=== PATIENT | male | born 1940 | race Caucasian/White ===

== ENCOUNTER 2016-03-24 23:17 | Observation (INO) | payer MEDICARE ==
[2016-03-25 02:37] LABS: Hematocrit 41 % (42-52); Mean Corpuscular HGB Conc 34 g/dl (31-36); Mean Corpuscular Hemoglobin 30 pg (27-31); Mean Corpuscular Volume 87 fL (80-94); Mean Platelet Volume 8 um3 (7.4-10.4); Red Blood Count 4.68 10^6/ul (4.0-5.4); Red Cell Distribution Width 16 % (10.5-15); White Blood Count 13.3 10^3/ul (3.5-10.8)
[2016-03-25 02:47] LABS: Albumin 4.1 g/dL (3.2-5.2); BUN/Creatinine Ratio 11.3 (8-20); Calcium 9.7 mg/dL (8.6-10.3); EGFR African American 67.4 (>60); EGFR Non-African American 52.4 (>60); Potassium 4.9 mmol/L (3.5-5.0); Total Bilirubin 0.9 mg/dL (0.2-1.0); Total Protein 7.1 g/dL (6.4-8.9)
[2016-03-25] MEDS ORDERED: Ondansetron INJ* 2 MG/ML VIAL IV ONE (03:36)
[2016-03-25] MEDS ORDERED: Morphine INJ* 4 MG/ML 1 ML CARPUJECT IV ONE (03:36)
[2016-03-25] MEDS ORDERED: NS 0.9% 1000 ML* 1,000 ML IV ONE ×2 (03:43→05:32)
[2016-03-25] MEDS ORDERED: Iodixanol* (CONTRAST) 320 MG/ML 100 ML SDV IV ONE (04:18)
[2016-03-25] MEDS ORDERED: cefTRIAXone(*) 1 GM in NS 0.9% 50 ML* 50 ML IVPB ONE (05:28)
[2016-03-25] MEDS ORDERED: Ketorolac INJ* 30 MG/ML 1 ML VIAL IV PUSH ONE (05:32)
[2016-03-25 05:43] LABS: Urine Bacteria Absent (Absent); Urine Bilirubin Negative (Negative); Urine Glucose 3+(>=500 mg/dL) (Negative); Urine Nitrite Negative (Negative)
--- NOTE | 2016-03-25 06:42 | ED ---
Rose Diane SooYoung, scribed for Manolo Greenberg MD on 03/25/16 at 0336 . Abdominal Pain/Male - HPI Summary HPI Summary: A 75 y/o M presents to ED with c/o diffuse L-sided abd pain onset this AM. No radiating pain, no testicular pain. No melena, CP, SOB. Pt "forced himself to throw-up." Aggravating: drinking the contrast in ED. Alleviating: lying down. Pt rates the pain as 6 out of 10 currently. He'd like to get a blood stick to check his DM. He is visiting his daughter for his grandson's birthday from [place]. Pert PMHx: DM Type II; diverticulitis. No abd surgeries. NKA. - History of Current Complaint Chief Complaint: EDAbdPain Stated Complaint: LEFT GROIN PAIN, JUST NOT FEELING RIGHT Time Seen by Provider: 03/25/16 02:26 Hx Obtained From: Patient Onset/Duration: Sudden Onset, Lasting Hours, Still Present Timing: Constant Severity Initially: Moderate Severity Currently: Moderate Pain Intensity: 0 Pain Scale Used: 0-10 Numeric Location: Diffuse - L abd Radiates: No - Allergies/Home Medications Allergies/Adverse Reactions: Allergies Allergy/AdvReac Type Severity Reaction Status Date / Time No Known Allergies Allergy Verified 03/25/16 02:53 PMH/Surg Hx/FS Hx/Imm Hx Previously Healthy: No Infectious Disease History: No Infectious Disease History: Denies: Traveled Outside the [place] in Last 30 Days - Social History Occupation: Unemployed Lives: Alone Alcohol Use: None Substance Use Type: Reports: None Smoking Status (MU): Never Smoked Tobacco Review of Systems Negative: Fever, Chills Negative: Erythema Negative: Sore Throat Negative: Chest Pain Negative: Shortness Of Breath, Cough Positive: Abdominal Pain - L-sided, Vomiting - forced himself. Negative: Nausea Negative: dysuria, hematuria Negative: Myalgia, Edema Negative: Rash Neurological: Other - neg: dizziness All Other Systems Reviewed And Are Negative: Yes Physical Exam - Summary Physical Exam Summary: Constitutional: Well-developed, Well-nourished, Alert. (-) Distressed Skin: Warm, Dry HENT: Normocephalic; Atraumatic Eyes: Conjunctiva normal Neck: Musculoskeletal ROM normal neck. (-) JVD, (-) Stridor, (-) Tracheal deviation Cardio: Rhythm regular, rate normal, Heart sounds normal; Intact distal pulses; The pedal pulses are 2+ and symmetric. Radial pulses are 2+ and symmetric. (-) Murmur Pulmonary/Chest wall: Effort normal. (-) Respiratory distress, (-) Wheezes, (-) Rales Abd: Soft, (-) Distension, (-) Guarding, (-) Rebound, LLQ TENDERNESS; NO PALPABLE HERNIAS Musculoskeletal: (-) Edema Lymph: (-) Cervical adenopathy Neuro: Alert, Oriented x3 Triage Information Reviewed: Yes Vital Signs On Initial Exam: Initial Vitals Temp Pulse Resp BP Pulse Ox 97.1 F 82 17 120/83 94 03/24/16 23:58 03/24/16 23:58 03/24/16 23:58 03/24/16 23:58 03/24/16 23:58 Vital Signs Reviewed: Yes Diagnostics - Vital Signs Vital Signs Temp Pulse Resp BP Pulse Ox 03/24/16 23:58 97.1 F 82 17 120/83 94 - Laboratory Lab Results: Lab Results 03/25/16 03/25/16 03/25/16 Range/Units 02:15 02:15 02:15 WBC 13.3 H (3.5-10.8) 10^3/ul RBC 4.68 (4.0-5.4) 10^6/ul Hgb 14.0 (14.0-18.0) g/dl Hct 41 L (42-52) % MCV 87 (80-94) fL MCH 30 (27-31) pg MCHC 34 (31-36) g/dl RDW 16 H (10.5-15) % Plt Count 163 (150-450) 10^3/ul MPV 8 (7.4-10.4) um3 Neut % (Auto) 88.5 H (38-83) % Lymph % (Auto) 6.7 L (25-47) % Branch % (Auto) 4.0 (1-9) % Eos % (Auto) 0.3 (0-6) % Baso % (Auto) 0.5 (0-2) % Absolute Neuts (auto) 11.8 H (1.5-7.7) 10^3/ul Absolute Lymphs (auto) 0.9 L (1.0-4.8) 10^3/ul Absolute Monos (auto) 0.5 (0-0.8) 10^3/ul Absolute Eos (auto) 0 (0-0.6) 10^3/ul Absolute Basos (auto) 0.1 (0-0.2) 10^3/ul Absolute Nucleated RBC 0 10^3/ul Nucleated RBC % 0 Sodium 138 (133-145) mmol/L Potassium 4.9 (3.5-5.0) mmol/L Chloride 102 (101-111) mmol/L Carbon Dioxide 28 (22-32) mmol/L Anion Gap 8 (2-11) mmol/L BUN 15 (6-24) mg/dL Creatinine 1.33 H (0.67-1.17) mg/dL Est GFR ( Amer) 67.4 (>60) Est GFR (Non-Af Amer) 52.4 (>60) BUN/Creatinine Ratio 11.3 (8-20) Glucose 208 H (70-100) mg/dL Lactic Acid 2.1 H* (0.5-2.0) mmol/L Calcium 9.7 (8.6-10.3) mg/dL Total Bilirubin 0.90 (0.2-1.0) mg/dL AST 15 (13-39) U/L ALT 15 (7-52) U/L Alkaline Phosphatase 50 (34-104) U/L Total Protein 7.1 (6.4-8.9) g/dL Albumin 4.1 (3.2-5.2) g/dL Globulin 3.0 (2-4) g/dL Albumin/Globulin Ratio 1.4 (1-3) Lipase 31 (11.0-82.0) U/L Result Diagrams: 03/25/16 02:15 03/25/16 02:15 Lab Statement: Any lab studies that have been ordered have been reviewed, and results considered in the medical decision making process. - CT A/P WITH CT CT Interpretation: Positive (See Comments) - IMPRESSION: MILD TO MODERATE L HYDRONEPHROSIS AND PERINEPHRIC INFLAMMATION SECONDARY TO 5MM MID TO DISTAL L URETAL STONE. CT Interpretation Completed By: Radiologist Re-Evaluation - Re-Evaluation First Eval Re-Evaluation Time: 05:00 Abdominal Pain Fem Course/Dx - Course Assessment/Plan: D/W DR. CAVANAUGH, URETERAL OBSTRUCTION 2ND TO 5 MM STONE, DIABETIC , CREATININE 1.3, WBC 13.3. ADMIT FOR URETEROSCOPY, IV ABX, NPO AFTER MIDNIGHT - Diagnoses Provider Diagnoses: Ureteral stone with hydronephrosis Discharge - Discharge Plan Condition: Good Disposition: ADMITTED TO [facility] The documentation as recorded by the Rose castrejon SooYoung accurately reflects the service I personally performed and the decisions made by , Manolo Greenberg MD.
--- NOTE | 2016-03-25 09:16 | RAD ---
Indication: Left lower quadrant pain. CT of the abdomen and pelvis was performed after oral and IV contrast administration. Coronal and sagittal reconstructed images were obtained. Administered 140.8 ml of VISAPAQUE 320 mgi/ml was given according to hospital protocol. The lung bases demonstrate no pleural fluid, nodules or masses. Heart is of normal size without evidence of pericardial effusion. The liver is normal in size. No focal lesions or intrahepatic duct dilatation is noted. The spleen is normal in size. No adrenal lesions are noted. The kidneys demonstrate delay of excretion of the left kidney. There is moderate degree of left hydronephrosis and hydroureter with a calculi in the distal left ureter approximately 3 cm proximal to the left ureterovesicular junction. This measures approximately 6 mm. Additional ureteral calculus is noted more distally just above the ureterovesicular junction measuring approximately 3 mm. The right kidney demonstrates multiple parapelvic cysts. There is a large cyst in the right kidney measuring up to 6.4 cm. Additional cyst lower pole left kidney measures up to 3 cm. Atherosclerotic aorta is noted. Diverticulosis of the sigmoid colon is noted without evidence of diverticulitis. No dilated loops of bowel are noted. Evaluation of the GI tract demonstrates a lipoma in the medial wall of the duodenum. The remainder of the pelvis demonstrates diverticulosis of the sigmoid colon without definite evidence of diverticulitis. Fecaliths are noted. The urinary bladder is unremarkable. No hernias are identified. IMPRESSION: 1. Delay of excretion of the left kidney. 5 mm calculus is noted in the distal left ureter approximately 3 cm proximal to the left ureterovesicular junction. 3 mm calculus is noted just above the left ureterovesicular junction. Right ureter is otherwise unremarkable. 2. Multiple parapelvic cysts are noted. 3. 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 4. Bilateral renal cysts are noted.
[2016-03-25] MEDS ORDERED: Ondansetron INJ* 2 MG/ML VIAL IV PRN (10:20)
[2016-03-25] MEDS ORDERED: Acetaminophen TAB* 325 MG PO PRN (10:20)
[2016-03-25] MEDS ORDERED: Morphine INJ* 4 MG/ML 1 ML CARPUJECT IV PRN (10:20)
[2016-03-25] MEDS ORDERED: Dextrose 50% Syringe 50 ML* 25 GM/50 ML SYRINGE IV PUSH PRN (10:22)
[2016-03-25] MEDS ORDERED: Gentamicin ADULT (*) 180 MG in NS 0.9% 100 ML* 100 ML IVPB ONE (11:00)
[2016-03-25] MEDS ORDERED: Midazolam* 1 MG/ML 5 ML VIAL (5 MG) ONE (12:05)
[2016-03-25] MEDS ORDERED: fentaNYL* 50 MCG/ML 2 ML VIAL (100 MCG VIAL) ONE (12:18)
[2016-03-25] MEDS ORDERED: Atracurium* 10 MG/ML 10 ML VIAL ONE (12:33)
[2016-03-25] MEDS ORDERED: Propofol* 10 MG/ML 20 ML BTL IV PUSH ONE (13:17)
--- NOTE | 2016-03-25 13:23 | HP ---
ADMISSION HISTORY AND PHYSICAL: DATE OF ADMISSION: 03/25/16 PRIMARY CARE PROVIDER: Dr. Johnson in [place], [place]. HEALTHCARE PROXY: Micaela Lowry. CODE STATUS: Full. SOURCE OF INFORMATION: History obtained from interview with emergency room physician and discussion with the patient. RELIABILITY: Good. CHIEF COMPLAINT: Flank pain. HISTORY OF PRESENT ILLNESS: This is a 75-year-old man with past medical history of diabetes and hyperlipidemia, who had been in his usual state of health, visiting his grandchildren from [place] for a birthday green party. On the day prior to admission, he developed left abdominal and flank pain that became progressively worse. He took Tums for relief without effect, but did not take any NSAIDs, Tylenol or aspirin. Because of the worsening pain, he presented to the emergency room, where a CAT scan was notable for obstructing nephrolithiasis. The patient denies any decrease in fluid or food intake prior to the pain onset. His exercise tolerance is generally about a quarter mile of walking, limited by right leg pain. Prior to initiation of pain, he was exercising everyday for an hour to hour and half approximately 1 year prior on treadmill and also using free weights. Denies any fever, chills, or night sweats prior to presentation. No nausea or vomiting. He notes a weaker stream over the last several years and gets up at night to urinate approximately 2 times overnight. He denies ever having chest pain or shortness of breath. On his previous surgeries, he has never had difficulty with anesthesia. He denies orthopnea, PND, or increasing lower extremity edema. PAST MEDICAL HISTORY: 1. Type 2 diabetes on metformin alone. 2. History of hyperlipidemia. 3. History of diverticulitis. 4. No history of CAD, TIA, CVA, DVTs, PE, or HILARIO. PAST SURGICAL HISTORY: 1. Right wrist surgery in 2011. 2. Carpal tunnel release 15 years prior. 3. Right knee surgery. 4. Tonsillectomy in 1967. MEDICATIONS: 1. Metformin 1000 mg twice daily. 2. Simvastatin 40 mg in the evening. 3. Aspirin p.r.n. for pain or other ailment relief. ALLERGIES: No known drug allergies. FAMILY HISTORY: Mother with CAD, at 72. Father with lung cancer. SOCIAL HISTORY: Smoked three-quarters of a pack for 5 to 6 years, quit 30 years prior. Drinks several glasses of wine per week. No history of illicits. He is retired, worked multiple jobs, most recently worked at [employer] for 7 years. REVIEW OF SYSTEMS: As per HPI; otherwise, all other systems negative. PHYSICAL EXAMINATION GENERAL: Lying flat, obese, interactive, pleasant, in no apparent distress. VITAL SIGNS: In the emergency room, blood pressure 119/55, heart rate 78, respiratory rate 16, and 95% on room air. T-max 98.7. HEENT: Oropharynx is clear. Moist mucous membranes. Sclerae are anicteric. NECK: No elevated JVD. No palpable cervical or supraclavicular lymphadenopathy. LUNGS: Clear to auscultation. HEART: Regular rate and rhythm. No murmurs, rubs, or gallops. ABDOMEN: Soft, nontender, and nondistended. Positive bowel sounds. He has no costovertebral angle tenderness. EXTREMITIES: Warm and well perfused with 1+ lower extremity edema. Less than 2 second capillary refill with good skin turgor. NEUROLOGIC: He is alert and oriented x3. Cranial nerves II through XII are intact. He has no apparent anxiety, agitation, or depression. DIAGNOSTIC STUDIES/LAB DATA: Laboratory data reviewed. White blood cell count 13.3, neutrophils 88%, hemoglobin 14, hematocrit 41. His BUN is 15, creatinine 1.33, no known prior; glucose is 208; lactic acid 2.1, repeat pending now. Transaminases are normal. Lipase normal. Urine is positive for 3 + blood and 3+ glucose. Specific gravity 1.027. Data reviewed. CT of abdomen and pelvis impression is delayed excretion of the left kidney with a 5-mm calculus noted at the distal left ureter, approximately 3 cm proximal to the left UV junction. A 3-mm calculus is noted just above the left ureterovesical junction. Right ureter is otherwise unremarkable. Multiple parapelvic cysts are noted. 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 Bilateral renal cysts are noted. ASSESSMENT AND PLAN: This is a 75-year-old man with past medical history of diabetes and hyperlipidemia, presenting with left flank pain and found with obstructing nephrolithiasis. 1. Nephrolithiasis. ER discussed with Dr. Verma and plan for OR this afternoon. We will strain urine to monitor for passage of stone. Continue pain medication with IV morphine as noted, although currently pain is well controlled. Initiation of Flomax and finasteride after procedure if indicated by Urology recommendations. The patient received ceftriaxone once in the emergency room, continue to monitor. 2. Acute kidney injury, likely in the setting of obstructing stone. Received IV fluids in the emergency room, hold additional now until after surgery. Recheck in the morning. 3. Diabetes. Insulin sliding scale and fingerstick glucose. 4. DVT prophylaxis. SCDs currently, as the patient is pending OR in the next 1 or 2 hours. Plan on subcu heparin if the patient necessitates staying in the hospital status post procedure. [id number]/CPS #: [id number] ANGELA
[2016-03-25] MEDS ORDERED: Tamsulosin CAP* 0.4 MG ONE (13:58)
[2016-03-25] MEDS: Insulin LISPRO* 1 UNITS UNIT SUBCUT SCH ×3 (14:30→20:55)
--- NOTE | 2016-03-25 14:46 | RAD ---
INDICATION: Left stent insertion COMPARISON: None FINDINGS: 7 seconds of fluoroscopy were provided for the urology department. Fluoroscopic spot imaging of the left abdomen were obtained for operative control and show placement of a left ureteral stent in expected position . CPT II Codes: 6045F (fluoro time doc)
[2016-03-25] MEDS ORDERED: Influenza VAC *QUAD* 2016-17* 0.5 ML SYRINGE IM ONE (17:00)
[2016-03-25] MEDS ORDERED: Tamsulosin CAP* 0.4 MG PO ONE (18:00)
[2016-03-25] MEDS ORDERED: Tamsulosin CAP* 0.4 MG PO SCH (21:00)
--- NOTE | 2016-03-26 04:08 | OP ---
DATE OF OPERATION: 03/25/16 - ROOM #347 DATE OF : 40 - AGE: 75 years, male. SURGEON: Wilbur Verma MD ANESTHESIOLOGIST: Dr. Hayes. ANESTHESIA: General. PRE-OP DIAGNOSES: 1. Left hydronephrosis. 2. Left ureteral calculi. POST-OP DIAGNOSES: 1. Left hydronephrosis. 2. Left ureteral calculi. OPERATIVE PROCEDURES: 1. Cystoscopy. 2. Left retrograde pyelogram. 3. Left ureteroscopy. 4. Laser lithotripsy of left ureteral calculi and removal of left ureteral calculi and left stent insertion. COMPLICATIONS: None. POSTOPERATIVE CONDITION: Stable. STENT USED: A 7-[place] stent left ureter. OPERATIVE FINDINGS: 1. Moderately enlarged prostate. 2. Calculi impacted in distal left ureter with left hydronephrosis. POSTOPERATIVE CONDITION: Stable. INDICATIONS: Cr Aguilar is a 75-year-old diabetic who presented to the emergency room with left flank pain and nausea, and was noted to have obstructing calculi. DESCRIPTION OF PROCEDURE: After induction of general anesthesia, the patient was placed in dorsal lithotomy position. Sequential compression devices were in place and functioning. Initial cystoscopy revealed normal-appearing urethra , moderately enlarged prostate, and a normal-appearing bladder. Clear efflux was noted from the right orifice. There was no efflux noted from the left orifice suggesting a complete obstruction at this point. A guidewire was introduced into the left ureter. A retrograde pyelogram revealed fullness of the left collecting system. A 6-[place] semirigid ureteroscope was introduced and advanced under direct vision. About 4 to 5 cm above the ureterovesical junction, 2 calculi were noted with the larger one being impacted in the ureter with surrounding inflammatory response. Using a 550-micron Holmium laser, these were successfully fragmented into multiple pieces and all of the sizeable pieces were retrieved. A 7-[place] stent was introduced and positioned under fluoroscopy with good proximal and distal positioning obtained. The patient tolerated the procedure satisfactorily and was transferred back to recovery area in stable condition. [id number]/CPS #: [id number] [facility]
[2016-03-26 07:09] LABS: Hematocrit 34 % (42-52); Hemoglobin 12.1 g/dl (14.0-18.0); Mean Corpuscular HGB Conc 35 g/dl (31-36); Mean Corpuscular Hemoglobin 30 pg (27-31); Mean Corpuscular Volume 86 fL (80-94); Mean Platelet Volume 8 um3 (7.4-10.4); Red Blood Count 3.99 10^6/ul (4.0-5.4); Red Cell Distribution Width 16 % (10.5-15); White Blood Count 7.6 10^3/ul (3.5-10.8)
[2016-03-26 07:24] LABS: BUN/Creatinine Ratio 11.4 (8-20); Calcium 8.3 mg/dL (8.6-10.3); EGFR African American 108.6 (>60); EGFR Non-African American 84.4 (>60); Potassium 3.7 mmol/L (3.5-5.0)
[2016-03-26] MEDS ORDERED: Finasteride TAB* 5 MG PO SCH (09:00)
[2016-03-26] MEDS ORDERED: cefTRIAXone VIAL(*) 1,000 MG in NS 0.9% 50 ML* 50 ML IVPB SCH (09:00)
[2016-03-26] MEDS: Insulin LISPRO* 1 UNITS UNIT SUBCUT SCH ×2 (09:22→14:28)
--- NOTE | 2016-03-26 11:22 | DS ---
DISCHARGE SUMMARY: DATE OF ADMISSION: 03/25/16 DATE OF DISCHARGE: 03/26/16 PRIMARY CARE PROVIDER: Dr. Johnson [place], [place]. SECONDARY DIAGNOSES: 1. Type 2 diabetes mellitus. 2. Hyperlipidemia. 3. History of diverticulitis. PROCEDURE PERFORMED DURING HOSPITAL STAY: Cystoscopy, laser lithotripsy, left ureteral stent placement by Dr. Verma, 03/25/16. MEDICATIONS ON DISCHARGE: 1. Metformin 1000 mg twice daily. 2. Atorvastatin 20 mg in the evening. 3. Flomax 0.4 mg at bedtime. 4. Tylenol 650 mg every 6 hours as needed for pain. PERTINENT LABORATORY DATA: Creatinine on presentation 1.3; on discharge, improved to 0.88. Lactic acid on presentation 2.1, increased to 3.0, decreased back to 2.1 with volume resuscitation. Microbiology: No cultures positive. HISTORY OF PRESENT ILLNESS AND HOSPITAL COURSE: This is a 75-year-old man, past medical history of diabetes, hyperlipidemia, been in his usual state of health, visiting from [place], developed abdominal pain, presented to the emergency room, found with obstructing left-sided nephrolithiasis with associated hydronephrosis. He was brought to the operating room with Dr. Verma and laser lithotripsy of two stones and placement of left ureteral stent. Please see op report for further details pertaining to surgery. He tolerated the surgery well. Status post procedure, he had no additional pain. He was monitored overnight, given additional fluids. He was treated with ceftriaxone prior to operating room. He remained afebrile without any appreciable leukocytosis. On the day of discharge, he was ambulating without distress. He had regular rate and rhythm. His lungs were clear to auscultation. His abdomen was soft and nontender. He had no flank pain. FOLLOWUP INSTRUCTIONS: At followup, please: Evaluate for continued symptoms. The patient may benefit from referral to a urologist for continued followup in the future. The patient was started on Flomax for new diagnosis of BPH noted on cystoscopy. Reasons to return to the hospital including but not limited to recurrent or worsening symptoms, including worsening abdominal pain or flank pain, dysuria, hesitancy, frequency, chest pain, shortness of breath, nausea, vomiting, lightheadedness, loss of consciousness, near loss of consciousness, diarrhea, inability to obtain or tolerate his medications were discussed, the patient acknowledged understanding. TIME SPENT: Greater than 45 minutes was spent discharging the patient, greater than half was spent [id number] with the patient. [id number]/[facility] #: [id number] ANGELA
[2016-03-26 12:03] VITALS: BP 154/60
== END 2016-03-26 13:15 | disposition home or self-care (01) ==
LOC: ED 23:17 → OR 03-25 10:47 → SSU 03-25 14:36
PROVIDERS: ADMIT Urology; ATTEND Internal Medicine
PROC: 0T778DZ Dilation of Left Ureter with Intraluminal Device, Via Natural or Artificial Opening Endoscopic (ICD-10-PCS; 2016-03-25)
PROC: 0TC78ZZ Extirpation of Matter from Left Ureter, Via Natural or Artificial Opening Endoscopic (ICD-10-PCS; 2016-03-25)
PROC: BT1FZZZ Fluoroscopy of Left Kidney, Ureter and Bladder (ICD-10-PCS; 2016-03-25)
PROC: 0TF78ZZ Fragmentation in Left Ureter, Via Natural or Artificial Opening Endoscopic (ICD-10-PCS; principal; 2016-03-25 13:00)
DX: N13.2 Hydronephrosis with renal and ureteral calculous obstruction (principal); N17.9 Acute kidney failure, unspecified; E11.9 Type 2 diabetes mellitus without complications; Z79.84 Long term (current) use of oral hypoglycemic drugs; E78.5 Hyperlipidemia, unspecified; Z79.899 Other long term (current) drug therapy; Z23 Encounter for immunization; N28.1 Cyst of kidney, acquired
CPT/HCPCS: 36415; 74177; 74420; 80048; 80053; 81003; 81015; 82365; 83605; 83690; 85025; 88300; 90471; 90686; 96361; 96365; 96375; 99283; A9270-GY; C1876; G0008; G0378; J0696; J1580; J1885; J2250; J2270; J2405; J2704; J3010; Q9967